=== PATIENT | male | born 1985 | race African-American/Black ===

== ENCOUNTER 2023-08-25 17:50 | Emergency (ER) | payer BC ==
[2023-08-25 18:09] VITALS: BP 142/99; PULSE 74; RESP 16; TEMP 98.6; BMI 23.6
[2023-08-25] MEDS ORDERED: FAMOTIDINE 10 MG TABLET PO ONE ×2 (18:28→18:31)
[2023-08-25] MEDS ORDERED: MAG HYDROX/AL HYDROX/SIMETH 30 ML UNIT-DOSE CUP PO ONE (18:28)
[2023-08-25] MEDS ORDERED: FAMOTIDINE 20 MG TABLET ONE (18:31)
[2023-08-25] MEDS ORDERED: MAG HYDROX/AL HYDROX/SIMETH 30 ML UNIT-DOSE CUP ONE (18:31)
== END 2023-08-25 18:58 | disposition home or self-care (01) ==
LOC: FER 17:50
DX: R10.9 Unspecified abdominal pain (principal); R11.2 Nausea with vomiting, unspecified; R14.0 Abdominal distension (gaseous)
CPT/HCPCS: 99283-25

== ENCOUNTER 2023-11-21 04:15 | Day surgery (SDC) | payer BC ==
[2023-11-14 09:47] VITALS: BMI 25.9
[2023-11-21 09:35] VITALS: TEMP 97.2
[2023-11-21 10:01] VITALS: BP 118/72; PULSE 80; RESP 18
== END 2023-11-21 10:21 | disposition home or self-care (01) ==
LOC: JASU-ENDO 04:15
PROVIDERS: ATTEND Internal Medicine Gastroenterology
PROC: 0DB78ZX Excision of Stomach, Pylorus, Via Natural or Artificial Opening Endoscopic, Diagnostic (ICD-10-PCS; 2023-11-21)
PROC: 0DB68ZX Excision of Stomach, Via Natural or Artificial Opening Endoscopic, Diagnostic (ICD-10-PCS; 2023-11-21)
PROC: 0DB98ZX Excision of Duodenum, Via Natural or Artificial Opening Endoscopic, Diagnostic (ICD-10-PCS; principal; 2023-11-21 09:00)
DX: K29.50 Unspecified chronic gastritis without bleeding (principal)
CPT/HCPCS: 88305-TC; 88341-TC; 88342-TC